=== PATIENT | male | born 1965 | race Caucasian/White ===

== ENCOUNTER 2021-06-11 17:50 | Inpatient (IN) ==
[2021-06-11] MEDS ORDERED: Clindamycin 600 MG/50 ML 600 MG/50 ML IV.SOLN IVPB STA (20:08)
[2021-06-11] MEDS ORDERED: *HR* FentaNYL (PF) 100 MCG/2 ML VIAL IVP ONE ×2 (20:09→23:25)
[2021-06-11] MEDS ORDERED: Isovue-370 500 ML BOTTLE IVP ONE (20:10)
[2021-06-11 20:50] LABS: Basophils % 0.2 %; Eosinophils % 0.3 %; Hematocrit 40.2 % (37.5-50.1); Hemoglobin 14.2 g/dL (12.9-16.9); Immature Granulocytes % 0.6 % (0-4); Lymphocytes # 0.8 K/mcL (0.6-4.6); Lymphocytes % 7.2 %; Mean Corpuscular HGB Conc 35.3 g/dL (31.6-35.5); Mean Corpuscular Hemoglobin 33.3 pg (28.0-33.3); Mean Corpuscular Volume 94.1 fL (83.0-100.0); Mean Platelet Volume 10.7 fL (9.4-12.4); Monocytes # 0.9 K/mcL (0.0-1.3); Monocytes % 7.9 %; Neutrophils # 9.6 K/mcL (1.6-8.9); Platelet Count 269 K/mcL (140-400); Red Blood Count 4.27 M/mcL (4.19-5.50); Red Cell Distribution Width 12.5 % (11.5-14.5); Segmented Neutrophils % 83.8 %; White Blood Count 11.5 K/mcL (4.3-11.1)
[2021-06-11 21:08] LABS: BUN/Creatinine Ratio 13 (6-26); Blood Urea Nitrogen 10 mg/dL (6-20); Calcium 8.7 mg/dL (8.6-10.3); Carbon Dioxide 27 mEq/L (23-29); Chloride 96 mEq/L (98-107); Glucose 116 mg/dL (70-105); Osmolality,Calculated 272 (280-300); Potassium 3.7 mEq/L (3.5-5.1); Sodium 131 mEq/L (136-145); eGFR For African Americans > 60 (> 60); eGFR For Non-African Americans > 60 (> 60)
[2021-06-12] MEDS ORDERED: Acetaminophen IV 1,000 MG/100 ML BAG IVPB ONE (00:37)
[2021-06-12] MEDS ORDERED: *HR* HYDROmorphone 2 MG TABLET PO ONE (00:39)
[2021-06-12] MEDS ORDERED: Ondansetron 4 MG/2 ML VIAL IVP PRN ×3 (00:40→14:56)
[2021-06-12] MEDS ORDERED: Acetaminophen 325 MG TABLET PO PRN ×2 (00:40→14:56)
[2021-06-12] MEDS ORDERED: Naloxone 0.4 MG/ML INJ IVP PRN ×2 (00:40→14:56)
[2021-06-12] MEDS ORDERED: 0.9 % Sodium Chloride 1,000 ML IVC SCH (00:45)
[2021-06-12 01:50] LABS: Adenovirus Not Detected (Not Detect); Bordetella Pertussis Not Detected (Not Detect); Chlamydophila pneumoniae Not Detected (Not Detect); Coronavirus 229E Not Detected (Not Detect); Coronavirus HKU1 Not Detected (Not Detect); Coronavirus NL63 Not Detected (Not Detect); Coronavirus OC43 Not Detected (Not Detect); Human Metapneumovirus Not Detected (Not Detect); Human Rhinovirus/Enterovirus Not Detected (Not Detect); Influenza A Subtype 2009 H1 Not Detected (Not Detect); Influenza B Not Detected (Not Detect); Mycoplasma pneumoniae Not Detected (Not Detect); Parainfluenza Virus 1 Not Detected (Not Detect); Parainfluenza Virus 2 Not Detected (Not Detect); Parainfluenza Virus 3 Not Detected (Not Detect); Parainfluenza Virus 4 Not Detected (Not Detect); Respiratory Syncytial Virus Not Detected (Not Detect); SARS-CoV-2 Not Detected (Not Detect)
[2021-06-12 04:53] LABS: Hematocrit 40.5 % (37.5-50.1); Hemoglobin 14.4 g/dL (12.9-16.9); Mean Corpuscular HGB Conc 35.6 g/dL (31.6-35.5); Mean Corpuscular Hemoglobin 33.5 pg (28.0-33.3); Mean Corpuscular Volume 94.2 fL (83.0-100.0); Mean Platelet Volume 10.8 fL (9.4-12.4); Platelet Count 264 K/mcL (140-400); Red Cell Distribution Width 12.7 % (11.5-14.5); White Blood Count 9.9 K/mcL (4.3-11.1)
[2021-06-12] MEDS ORDERED: Ibuprofen 600 MG TABLET PO ONE (04:57)
[2021-06-12] MEDS ORDERED: Clindamycin 600 MG/50 ML 600 MG/50 ML IV.SOLN IVPB SCH (05:00)
[2021-06-12 05:06] LABS: BUN/Creatinine Ratio 11 (6-26); Blood Urea Nitrogen 8 mg/dL (6-20); Calcium 8.5 mg/dL (8.6-10.3); Carbon Dioxide 26 mEq/L (23-29); Chloride 98 mEq/L (98-107); Cholesterol 144 mg/dL (< 200); Glucose 97 mg/dL (70-105); HDL Cholesterol 29 mg/dL (40-59); INR 1.2; LDL Cholesterol,Calculated 100 mg/dL (< 100); Magnesium 1.8 mg/dL (1.6-2.6); Osmolality,Calculated 272 (280-300); Potassium 3.9 mEq/L (3.5-5.1); Prothrombin Time 14.1 Seconds (9.4-12.1); Sodium 132 mEq/L (136-145); Triglycerides 75 mg/dL (< 150); eGFR For African Americans > 60 (> 60); eGFR For Non-African Americans > 60 (> 60)
[2021-06-12 05:09] LABS: Activated Partial Thrombo Time 28.6 Seconds (26.0-36.0)
[2021-06-12 05:25] LABS: Estimated Average Glucose 120 mg/dl; Hemoglobin A1C 5.8 %
[2021-06-12] MEDS ORDERED: Calcium Gluconate 1gm/50mL 1 GM/50 ML BAG IVPB ONE (05:35)
[2021-06-12 06:05] LABS: Amphetamine Screen,Urine Negative ng/mL (Cutoff=1000); Barbiturate Screen,Urine Negative ng/mL (Cutoff=200); Benzodiazepines Screen,Urine Negative ng/mL (Cutoff=200); Cannabinoid Screen,Urine Negative ng/mL (Cutoff = 50); Cocaine Screen,Urine Negative ng/mL (Cutoff= 300); Opiate Screen,Urine Negative ng/mL (Cutoff=300); Phencyclidine Screen,Urine Negative ng/mL (Cutoff=25)
[2021-06-12] MEDS ORDERED: *HR* OxyCODONE/APAP 5/325 TABLET PO PRN ×2 (08:13→14:56)
[2021-06-12] MEDS ORDERED: *HR* HYDROmorphone PF 0.5 MG/0.5 ML SYRINGE IVP PRN (12:17)
[2021-06-12] MEDS ORDERED: *HR* Meperidine 25 MG/ML SYRINGE IVP PRN (12:17)
[2021-06-12] MEDS ORDERED: *HR* Propofol 200 MG/20 ML VIAL IVP ONE (12:44)
[2021-06-12] MEDS ORDERED: *HR* FentaNYL (PF) 100 MCG/2 ML VIAL ONE (12:44)
[2021-06-12] MEDS ORDERED: Lidocaine -MPF 2% 2 ML VIAL ONE (12:46)
[2021-06-12] MEDS ORDERED: Ondansetron 4 MG/2 ML VIAL ONE (12:46)
[2021-06-12] MEDS ORDERED: *HR* Succinylcholine 200 MG/10 ML VIAL IVP ONE (12:57)
[2021-06-12] MEDS ORDERED: *HR* HYDROMORPHONE 2 MG/ML VIAL ONE (13:23)
[2021-06-12] MEDS: Ketorolac 15 MG/ML VIAL IVP SCH ×2 (17:52→23:45)
[2021-06-12] MEDS: 0.9 % Sodium Chloride 1,000 ML IVC SCH (17:52)
[2021-06-12] MEDS: Clindamycin 600 MG/50 ML 600 MG/50 ML IV.SOLN IVPB SCH (21:01)
[2021-06-13] MEDS: 0.9 % Sodium Chloride 1,000 ML IVC SCH (03:54)
[2021-06-13] MEDS: Clindamycin 600 MG/50 ML 600 MG/50 ML IV.SOLN IVPB SCH ×3 (04:45→20:18)
[2021-06-13] MEDS: Ketorolac 15 MG/ML VIAL IVP SCH (05:08)
[2021-06-13 08:20] LABS: BUN/Creatinine Ratio 24 (6-26); Blood Urea Nitrogen 15 mg/dL (6-20); Calcium 8.3 mg/dL (8.6-10.3); Carbon Dioxide 23 mEq/L (23-29); Chloride 102 mEq/L (98-107); Glucose 117 mg/dL (70-105); Osmolality,Calculated 276 (280-300); Potassium 4.6 mEq/L (3.5-5.1); Sodium 132 mEq/L (136-145); eGFR For African Americans > 60 (> 60); eGFR For Non-African Americans > 60 (> 60)
[2021-06-13] MEDS ORDERED: *HR* OxyCODONE/APAP 5/325 TABLET PO PRN (11:43)
[2021-06-13] MEDS ORDERED: *HR* HYDROmorphone (PF) 1 MG/ML SYRINGE IVP PRN (12:04)
[2021-06-13 12:59] LABS: Hematocrit 39.6 % (37.5-50.1); Hemoglobin 13.8 g/dL (12.9-16.9); Mean Corpuscular HGB Conc 34.8 g/dL (31.6-35.5); Mean Corpuscular Hemoglobin 33.7 pg (28.0-33.3); Mean Corpuscular Volume 96.8 fL (83.0-100.0); Mean Platelet Volume 11.1 fL (9.4-12.4); Platelet Count 314 K/mcL (140-400); Red Blood Count 4.09 M/mcL (4.19-5.50); Red Cell Distribution Width 12.8 % (11.5-14.5); White Blood Count 9.1 K/mcL (4.3-11.1)
[2021-06-13] MEDS: Ibuprofen 800 MG TABLET PO SCH (15:26)
[2021-06-13] MEDS: Lactobacillus 1 EACH CAP.SPRINK PO SCH (17:18)
[2021-06-14] MEDS: Ibuprofen 800 MG TABLET PO SCH ×3 (00:14→17:02)
[2021-06-14 02:42] LABS: Basophils % 0.4 %; Eosinophils % 0.4 %; Hematocrit 37.4 % (37.5-50.1); Hemoglobin 13.4 g/dL (12.9-16.9); Immature Granulocytes % 1.2 % (0-4); Lymphocytes # 1.6 K/mcL (0.6-4.6); Lymphocytes % 21.2 %; Mean Corpuscular HGB Conc 35.8 g/dL (31.6-35.5); Mean Corpuscular Hemoglobin 34.4 pg (28.0-33.3); Mean Corpuscular Volume 95.9 fL (83.0-100.0); Mean Platelet Volume 10.7 fL (9.4-12.4); Monocytes % 13.4 %; Neutrophils # 4.7 K/mcL (1.6-8.9); Platelet Count 353 K/mcL (140-400); Red Cell Distribution Width 12.6 % (11.5-14.5); Segmented Neutrophils % 63.4 %; White Blood Count 7.4 K/mcL (4.3-11.1)
[2021-06-14 03:00] LABS: BUN/Creatinine Ratio 21 (6-26); Blood Urea Nitrogen 16 mg/dL (6-20); Carbon Dioxide 25 mEq/L (23-29); Chloride 104 mEq/L (98-107); Glucose 105 mg/dL (70-105); Osmolality,Calculated 282 (280-300); Potassium 4.4 mEq/L (3.5-5.1); Sodium 135 mEq/L (136-145); eGFR For African Americans > 60 (> 60); eGFR For Non-African Americans > 60 (> 60)
[2021-06-14 04:06] LABS: Platelet Estimate Normal (Normal); Reactive Lymphocytes Present (Not Present)
[2021-06-14] MEDS: Clindamycin 600 MG/50 ML 600 MG/50 ML IV.SOLN IVPB SCH (05:36)
[2021-06-14] MEDS ORDERED: *HR* Enoxaparin 40 MG/0.4 ML SYRINGE SQ SCH (06:00)
[2021-06-14] MEDS: Lactobacillus 1 EACH CAP.SPRINK PO SCH (08:51)
[2021-06-14 09:01] VITALS: PULSE 55; TEMP 97.8; O2SAT 96
[2021-06-14 09:21] VITALS: BP 115/69
== END 2021-06-14 17:34 | disposition home health service (06) | DRG 571 ==
LOC: EMEROOARM 17:50 → 3ANU 17:50 → SUATTDRO 06-12 00:05 → 3ANU 06-12 00:35
PROVIDERS: ADMIT Student in an Organized Health Care Education/Training Program; ATTEND Hospitalist